=== PATIENT | male | born 1985 ===

== ENCOUNTER 2017-01-16 14:52 | Emergency (ER) | payer BC ==
[2017-01-16 14:52] VITALS: BMI 48.2
--- NOTE | 2017-01-16 15:13 | ED PDOC ---
Arrival/HPI - General Chief Complaint: Chest Pain Time Seen by Provider: 01/16/17 15:04 Historian: Patient - History of Present Illness Narrative History of Present Illness (Text): 01/16/17 15:11 A 31 year old male, whose past medical history includes asthma and depression, presents to the emergency department complaining of intermittent chest pain radiating to the back since last night and again after having woken up this morning. Patient reports that his chest pain has been intermittent since last night ever hour. When he woke up this morning, symptoms continued for every 2 hours. Patient denies fever, chills, nausea, vomiting, diarrhea, abdominal pain , shortness of breath, cough, headache, or any other complaints. Time/Duration: Other (last night and this morning when patient woke up) Symptom Course: Intermittent Activities at Onset: Rest, Light Context: Home Past Medical History - Provider Review Nursing Documentation Reviewed: Yes - Travel History Have you recently traveled outside [place] w/in the past 3 mons?: No - Infectious Disease Hx of Infectious Diseases: None - Tetanus Immunization Tetanus Immunization: Unknown - Pulmonary Hx Asthma: Yes - Psychiatric Hx Depression: No Hx Emotional Abuse: No Hx Physical Abuse: No Hx Substance Use: No - Past Surgical History Past Surgical History: No Previous - Suicidal Assessment Feels Threatened In Home Enviroment: No Family/Social History - Physician Review Nursing Documentation Reviewed: Yes Family/Social History: No Known Family HX Smoking Status: Never Smoked Hx Alcohol Use: No Hx Substance Use: No Hx Substance Use Treatment: No Allergies/Home Meds Allergies/Adverse Reactions: Allergies shellfish Allergy (Uncoded 01/16/17 14:59) ANAPHYLAXIS Review of Systems - Physician Review All systems were reviewed & negative as marked: Yes - Review of Systems Constitutional: absent: Fevers, Night Sweats Respiratory: absent: SOB, Cough Cardiovascular: Chest Pain (radiating to the back) Gastrointestinal: absent: Abdominal Pain, Diarrhea, Nausea, Vomiting Neurological: absent: Headache Physical Exam Vital Signs Reviewed: Yes Vital Signs Temp Pulse Pulse Resp BP Pulse Ox 01/16/17 17:59 98 H 18 137/87 98 01/16/17 16:00 96 H 01/16/17 15:08 97.8 F 103 H 19 162/90 H 103 H Temperature: Afebrile Blood Pressure: Normal Pulse: Tachycardic Respiratory Rate: Normal Appearance: Positive for: Well-Appearing Pain Distress: None Mental Status: Positive for: Alert and Oriented X 3 - Systems Exam Head: Present: Atraumatic, Normocephalic Pupils: Present: PERRL Extroacular Muscles: Present: EOMI Conjunctiva: Present: Normal Mouth: Present: Moist Mucous Membranes Neck: Present: Normal Range of Motion Respiratory/Chest: Present: Clear to Auscultation, Good Air Exchange. No: Respiratory Distress, Accessory Muscle Use, Other (no tenderness in chest) Cardiovascular: Present: Regular Rate and Rhythm, Normal S1, S2. No: Murmurs Abdomen: Present: Normal Bowel Sounds. No: Tenderness, Distention, Peritoneal Signs Back: Present: Normal Inspection Upper Extremity: Present: Normal Inspection. No: Cyanosis, Edema Lower Extremity: Present: Normal Inspection. No: Edema, CALF TENDERNESS (no calf pain), Other Neurological: Present: GCS=15, CN II-XII Intact, Speech Normal Skin: Present: Warm, Dry, Normal Color. No: Rashes Psychiatric: Present: Alert, Oriented x 3, Normal Insight, Normal Concentration Medical Decision Making ED Course and Treatment: 01/16/17 15:08 Impression: 31 year old male with chest pain radiating to the back. Physical exam shows no tenderness in chest, no swelling, no calf pain. Differential Diagnosis included but are not limited to: Chest Pain r/o PE vs Anxiety vs MSK, low risk for ACS Plan: -- EKG -- Blood Gas -- Chest CT -- Chest X-ray -- Labs -- Nasal Cannula -- Reassess and disposition Prior Visits: Notes and results from previous visits were reviewed. Patient was last seen in the emergency department on 10/26/2013 complaints of asthma exacerbation. Patient was discharged home. Progress Notes: 01/16/2017 15:20 EKG: Ordered, reviewed, and independently interpreted the EKG. Rate : 104 BPM Rhythm : Sinus tachycardia Interpretation : No ST-segment elevations or depressions, no T-wave inversions, normal intervals. Comparison : No previous EKG for comparison. 01/16/2017 17:44:11 Chest X-Ray Dictator : Monica Purdy MD HISTORY: chest pain COMPARISON: Chest x-ray performed 05/31/12 IMPRESSION: No focal consolidation, significant pleural effusion, or definite pneumothorax identified. 01/16/17 18:47 Patient currently feels better and is asymptomatic. 01/16/17 19:11 Patient's sister is at bedside who says that he gets anxious and has had similar symptoms like this before due to anxiety. Patient then admits to this. CT Angio Chest reviewed. Results below. Will discharge patient home with close follow up with PMD. He goes to [facility]. Advised to return to the ED if symptoms worsen or any other convern. Accession No. : [id number] Patient Name / ID : VINCENT DUPREE / [id number] Exam Date : 01/16/2017 17:21:21 ( Addendum_Approved ) Study Comment : Sex / Age : M / 31Y CTA chest PE protocol Indication: Chest pain, rule out PE Impression: There is suboptimal opacification of the pulmonary arteries due to missed bolus of the intravenous contrast limiting evaluation for pulmonary embolus. Given this limitation, there are no visible intraluminal filling defects within the central pulmonary arteries to suggest central pulmonary embolism. Hepatic steatosis. Additional findings as above. - Lab Interpretations Lab Results: 01/16/17 16:04 01/16/17 16:04 Lab Results 01/16/17 16:04: Sodium 138, Chloride 101, Potassium 4.1, Carbon Dioxide 26, Anion Gap 15, BUN 12, Creatinine 0.7, Est GFR ( Amer) > 60, Est GFR (Non- Af Amer) > 60, Random Glucose 154 H, Calcium 9.3, Lactate Dehydrogenase 483, Total Creatine Kinase 105, Troponin I < 0.01, NT-Pro-B Natriuret Pep 29.1 01/16/17 16:04: pO2 65 H, VBG pH 7.36, VBG pCO2 49.0, VBG HCO3 27.7, VBG Total CO2 29.2 H, VBG O2 Sat (Calc) 95.6 H, VBG Base Excess 1.5, VBG Potassium 4.5, Sodium 136.0, Chloride 103.0, Glucose 152 H, Lactate 2.0, FiO2 21.0, Venous Blood Potassium 4.5 01/16/17 16:04: PT 10.5, INR 0.97, APTT 29.6, D-Dimer, Quantitative 0.33 01/16/17 16:04: WBC 4.9, RBC 5.38, Hgb 15.0, Hct 44.2, MCV 82.2, MCH 27.9, MCHC 33.9, RDW 13.8, Plt Count 200, MPV 11.9 H, Gran % 62.3, Lymph % (Auto) 30.4, [place] % (Auto) 6.5 H, Eos % (Auto) 0.6 L, Baso % (Auto) 0.2, Gran # 3.08, Lymph # 1.5, Williamson # 0.3, Eos # 0.0, Baso # 0.01 I have reviewed the lab results: Yes - RAD Interpretation Radiology Orders: 01/16/17 15:08 ANGIO CHEST PE PROTOCOL [CT] Stat 01/16/17 15:10 CHEST PORTABLE [RAD] Stat - Medication Orders Current Medication Orders: Discontinued Medications Iodixanol (Visipaque 320 Mg/Ml 100 Ml) Confirm Administered Dose 100 ml IV .STK- MED ONE Stop: 01/16/17 17:19 - Scribe Statement Wendi Weiner Provider Scribe Attestation: All medical record entries made by the Scribe were at my direction and personally dictated by me. I have reviewed the chart and agree that the record accurately reflects my personal performance of the history, physical exam, medical decision making, and the department course for this patient. I have also personally directed, reviewed, and agree with the discharge instructions and disposition. Disposition/Present on Arrival - Present on Arrival Any Indicators Present on Arrival: No History of DVT/PE: No History of Uncontrolled Diabetes: No Urinary Catheter: No History of Decub. Ulcer: No History Surgical Site Infection Following: None - Disposition Have Diagnosis and Disposition been Completed?: Yes Diagnosis: Chest pain Disposition: HOME/ ROUTINE Disposition Time: 19:13 Patient Plan: Discharge Patient Problems: Current Active Problems Problem Status Onset Chest pain Acute Condition: IMPROVED Discharge Instructions (ExitCare): Chest Pain (ED) Additional Instructions: Mr Vidal, thank you for letting us take care of you today. Your provider was Dr. Goodwin. You were treated for Chest Pain. The emergency medical care you received today was directed at your acute symptoms. If you were prescribed any medication, please fill it and take as directed. It may take several days for your symptoms to resolve. Return to the Emergency Department if your symptoms worsen, do not improve, or if you have any other problems. Please contact your doctor or call one of the physicians/clinics you have been referred to that are listed on the Patient Visit Information form that is included in your discharge packet. Bring any paperwork you were given at discharge with you along with any medications you are taking to your follow up visit. Our treatment cannot replace ongoing medical care by a primary care provider (PCP) outside of the emergency department. Thank you for allowing the [facility] team to be part of your care today. If you had an X-Ray or CT scan: A Radiologist will review the ED reading if any change in treatment is needed we will contact you. If you had a blood, urine, or wound culture: It will take several days for the results, if any change in treatment is needed we will contact you. If you had an STI test: It will take 48 hours for the results. Please call after 1 week if you have not heard back. Referrals: [facility], [Non-Staff] - Follow up with primary PCP,NO [Primary Care Provider] - Follow up with primary Forms: [employer] ([place])
[2017-01-16 15:17] VITALS: TEMP 97.8
[2017-01-16 16:19] LABS: BASO # 0.01 K/mm3 (0.0-2.0); BASO % 0.2 % (0.0-3.0); EOS % 0.6 % (1.5-5.0); GRAN # 3.08 (1.4-6.5); GRAN % 62.3 % (50.0-68.0); LYMPH # 1.5 (1.2-3.4); LYMPH % 30.4 % (22.0-35.0); MEAN CELL VOLUME 82.2 fL (80.0-105.0); MEAN CORPUSCULAR HEMOGLOBIN 27.9 pg (25.0-35.0); MEAN CORPUSCULAR HGB CONC 33.9 g/dl (31.0-37.0); MEAN PLATELET VOLUME 11.9 fl (7.0-11.0); MONO # 0.3 (0.1-0.6); MONO % 6.5 % (1.0-6.0); PLATELET COUNT 200 10^3/uL (120.0-450.0); RBC 5.38 10^6/uL (3.5-6.1); RED CELL DISTRIBUTION WIDTH 13.8 % (11.5-14.5); VENOUS BLOOD GAS BASE EXCESS 1.5 mmol/L (0.0-2.0); VENOUS BLOOD GAS PO2 65 mm/Hg (30-55); VENOUS BLOOD PH 7.36 (7.32-7.43); WHITE BLOOD COUNT 4.9 10^3/ul (4.5-11.0)
[2017-01-16 16:30] LABS: INR 0.97 (0.93-1.08); PARTIAL THROMBOPLASTIN TIME 29.6 Seconds (23.7-30.8); PROTHROMBIN TIME 10.5 Seconds (9.9-11.8)
[2017-01-16 16:31] LABS: D DIMER 0.33 mg/L FEU (0-0.50)
[2017-01-16 16:40] LABS: B-TYPE NATRIURETIC PEPTIDE 29.1 pg/mL (0-450)
[2017-01-16 16:46] LABS: TROPONIN I < 0.01 ng/mL
[2017-01-16 16:49] LABS: BLOOD UREA NITROGEN 12 mg/dL (7-21); CALCIUM 9.3 mg/dL (8.4-10.5); GFR AFRICAN-AMERICAN > 60; GFR NON-AFRICAN AMERICAN > 60
[2017-01-16] MEDS ORDERED: Iodixanol 320 MG/ML 100 ML BOTTLE IV ONE (17:18)
--- NOTE | 2017-01-16 17:46 | RAD ---
HISTORY: chest pain COMPARISON: Chest x-ray performed 05/31/12 TECHNIQUE: Chest, one view. FINDINGS: Examination limited by habitus. LUNGS: No focal consolidation. Please note that chest x-ray has limited sensitivity for the detection of pulmonary masses. PLEURA: No significant pleural effusion identified. No definite pneumothorax . CARDIOVASCULAR: The cardiomediastinal silhouette appears within normal limits of size. OSSEOUS STRUCTURES: No acute osseous abnormality identified. VISUALIZED UPPER ABDOMEN: Unremarkable. OTHER FINDINGS: None. IMPRESSION: No focal consolidation, significant pleural effusion, or definite pneumothorax identified.
[2017-01-16 18:01] VITALS: BP 137/87; PULSE 98
--- NOTE | 2017-01-16 19:00 | CT ---
CTA chest PE protocol Indication: Chest pain, rule out PE Technique: Contiguous axial images were obtained through the chest with intravenous contrast enhancement. Sagittal and coronal reconstructions were generated and reviewed. This CT exam was performed using 1 or more of the falling dose reduction techniques: Automated exposure control, adjustment of the MAA and/or kV according to patient size, and/or use of iterative reconstruction technique. IV Contrast: Radiation dose (DLP): 824.44 MGy-cm. Comparison: Chest x-ray performed 01/16/17 Findings: Visualized portions of the inferior thyroid gland appear unremarkable. Evidence an aberrant subclavian artery, anatomic variant. The heart appears within normal limits of size. There is suboptimal opacification of the pulmonary arteries due to missed bolus of the intravenous contrast limiting evaluation for pulmonary embolus. Given this limitation, there are no visible intraluminal filling defects within the central pulmonary arteries to suggest central pulmonary embolism. Anterior mediastinal soft tissue presumed to reflect residual thymic tissue. No focal consolidation. No pleural effusion. No pneumothorax. No suspicious pulmonary nodules measuring greater than 5 mm. Limited visualized portions of the upper abdomen demonstrates hepatic steatosis. No acute osseous abnormality is detected. Impression: There is suboptimal opacification of the pulmonary arteries due to missed bolus of the intravenous contrast limiting evaluation for pulmonary embolus. Given this limitation, there are no visible intraluminal filling defects within the central pulmonary arteries to suggest central pulmonary embolism. Hepatic steatosis. Additional findings as above.
[2017-01-16 19:31] VITALS: RESP 16; O2SAT 99
--- NOTE | 2017-01-16 20:19 | CARD ---
APPROVED REPORT EKG Measurement Heart [id number] <Conclusion> Sinus tachycardia Nonspecific ST abnormality Abnormal ECG
== END 2017-01-16 19:31 | disposition home or self-care (01) ==
LOC: ED 14:52
DX: R07.9 Chest pain, unspecified (principal)
CPT/HCPCS: 71010; 71275; 80048; 82550; 82803; 83615; 83880; 84484; 85025; 85378; 85610; 85730; 93005; 99283; Q9967

== ENCOUNTER 2017-12-23 07:47 | Emergency (ER) | payer BC, MEDICAID ==
[2017-12-23 07:51] VITALS: BMI 53.2
[2017-12-23] MEDS ORDERED: Albuterol-Ipratrop 3 mg / 0.5 (3 ml) UD ONE (07:51)
[2017-12-23] MEDS ORDERED: Magnesium Sulfate 2 gm/50 ml 2 GM/50 ML BAG IVPB ONE (08:01)
[2017-12-23] MEDS ORDERED: Albuterol-Ipratrop 3 mg / 0.5 (3 ml) UD IH STA (08:01)
[2017-12-23 09:33] LABS: ALB/GLOB RATIO 1.2 (1.1-1.8); ALBUMIN 4.1 g/dL (3.0-4.8); ALT/SGPT 86 U/L (7-56); AST/SGOT 34 U/L (17-59); BLOOD UREA NITROGEN 8 mg/dL (7-21); CALCIUM 8.8 mg/dL (8.4-10.5); GFR AFRICAN-AMERICAN > 60; GFR NON-AFRICAN AMERICAN > 60
[2017-12-23 09:58] LABS: BASO # 0.03 K/mm3 (0.0-2.0); BASO % 0.6 % (0.0-3.0); EOS # 0.3 (0.0-0.7); EOS % 4.9 % (1.5-5.0); GRAN # 2.56 (1.4-6.5); HEMOGLOBIN 14.1 g/dL (14.0-18.0); LYMPH # 1.9 (1.2-3.4); LYMPH % 37.7 % (22.0-35.0); MEAN CELL VOLUME 81.9 fl (80.0-105.0); MEAN CORPUSCULAR HGB CONC 34.2 g/dl (31.0-37.0); MEAN PLATELET VOLUME 12.4 fl (7.0-11.0); MONO # 0.4 (0.1-0.6); MONO % 6.8 % (1.0-6.0); RBC 5.03 10^6/uL (3.5-6.1); RED CELL DISTRIBUTION WIDTH 14.2 % (11.5-14.5); WHITE BLOOD COUNT 5.1 10^3/ul (4.5-11.0)
--- NOTE | 2017-12-23 10:18 | ED PDOC ---
Arrival/HPI - General Chief Complaint: Shortness Of Breath Time Seen by Provider: 12/23/17 08:01 Historian: Patient - History of Present Illness Narrative History of Present Illness (Text): 12/23/17 10:14 A 32 year old male, whose past medical history includes asthma, presents to the emergency department complaining of shortness of breath since last night. Patient notes an associated dry cough. He reports his symptoms are similar to prior asthma exacerbations. Patient used nebulizer treatments at home, with mild relief. He notes his symptoms worsened this morning causing him to come in for further evaluation. Patient denies any fever, chills, nausea, vomiting, abdominal pain, chest pain or any other complaints. Patient reports he is only on rescue medication. He states he has never been intubated on prior hospitalizations. PMD: Dr. Palencia Time/Duration: Other (last night) Symptom Course: Unchanged Quality: Other Context: Home Past Medical History - Provider Review Nursing Documentation Reviewed: Yes - Infectious Disease Hx of Infectious Diseases: None - Tetanus Immunization Tetanus Immunization: Unknown - Pulmonary Hx Asthma: Yes - Psychiatric Hx Depression: No Hx Emotional Abuse: No Hx Physical Abuse: No Hx Substance Use: No - Past Surgical History Past Surgical History: No Previous - Suicidal Assessment Feels Threatened In Home Enviroment: No Family/Social History - Physician Review Nursing Documentation Reviewed: Yes Family/Social History: No Known Family HX Smoking Status: Never Smoked Hx Alcohol Use: No Hx Substance Use: No Hx Substance Use Treatment: No Allergies/Home Meds Allergies/Adverse Reactions: Allergies shellfish Allergy (Uncoded 01/16/17 14:59) ANAPHYLAXIS Review of Systems - Physician Review All systems were reviewed & negative as marked: Yes - Review of Systems Constitutional: absent: Fevers, Night Sweats Respiratory: SOB, Cough. absent: Sputum Cardiovascular: absent: Chest Pain Gastrointestinal: absent: Abdominal Pain, Nausea, Vomiting Physical Exam Vital Signs Temp Pulse Resp BP Pulse Ox 12/23/17 10:34 98 F 100 H 18 132/78 98 12/23/17 08:30 98.6 F 110 H 22 122/88 95 12/23/17 07:50 22 95 Appearance: Positive for: Well-Appearing, Non-Toxic, Comfortable, Other ( Morbidly obese male) Pain Distress: None Mental Status: Positive for: Alert and Oriented X 3 - Systems Exam Head: Present: Atraumatic, Normocephalic Pupils: Present: PERRL Extroacular Muscles: Present: EOMI Conjunctiva: Present: Normal Mouth: Present: Moist Mucous Membranes Neck: Present: Normal Range of Motion Respiratory/Chest: Present: Good Air Exchange, Wheezes (fine expiratory wheezing ). No: Respiratory Distress, Accessory Muscle Use Cardiovascular: Present: Regular Rate and Rhythm, Normal S1, S2. No: Murmurs Abdomen: Present: Normal Bowel Sounds. No: Tenderness, Distention, Peritoneal Signs Back: Present: Normal Inspection Upper Extremity: Present: Normal Inspection. No: Cyanosis, Edema Lower Extremity: Present: Normal Inspection. No: Edema Neurological: Present: GCS=15, CN II-XII Intact, Speech Normal Skin: Present: Warm, Dry, Normal Color. No: Rashes Psychiatric: Present: Alert, Oriented x 3, Normal Insight, Normal Concentration Medical Decision Making ED Course and Treatment: 12/23/17 10:14 Impression: A 32 year old male with shortness of breath and dry cough Differential Diagnosis included but are not limited to: Asthma exacerbation Plan: -- Chest xray -- Labs -- Duoneb, Solumedrol and Magnesium sulfate -- Reassess and disposition Progress Notes: EKG shows NSR at 98 BPM with normal axis, normal intervals. Interpreted by me. 12/23/17 08:14 Chest X-ray read and interpreted by me, which shows no active disease. On re-evaluation at 10:08, patient feels better and is in no acute distress. I have discussed the results and plan with the patient, who expresses understanding. Patient in agreement with plan to be discharged home. Patient is stable for discharge. Patient was instructed to follow up with physician or return if symptoms worsen or new concerning symptoms arise. - Lab Interpretations Lab Results: 12/23/17 09:10 12/23/17 09:10 Lab Results 12/23/17 09:10: Sodium 143, Potassium 3.8, Chloride 107, Carbon Dioxide 24, Anion Gap 16, BUN 8, Creatinine 0.6 L, Est GFR ( Amer) > 60, Est GFR (Non -Af Amer) > 60, Random Glucose 112 H, Calcium 8.8, Magnesium 1.8, Total Bilirubin 0.3, AST 34, ALT 86 H, Alkaline Phosphatase 61, Total Protein 7.3, Albumin 4.1, Globulin 3.3, Albumin/Globulin Ratio 1.2 12/23/17 09:10: WBC 5.1, RBC 5.03, Hgb 14.1, Hct 41.2 L, MCV 81.9, MCH 28.0, MCHC 34.2, RDW 14.2, Plt Count 211, MPV 12.4 H, Gran % 50.0, Lymph % (Auto) 37.7 H, [place] % (Auto) 6.8 H, Eos % (Auto) 4.9, Baso % (Auto) 0.6, Gran # 2.56, Lymph # (Auto) 1.9, [place] # (Auto) 0.4, Eos # (Auto) 0.3, Baso # (Auto) 0.03 I have reviewed the lab results: Yes - RAD Interpretation Radiology Orders: 12/23/17 08:02 CHEST PORTABLE [RAD] Stat - Medication Orders Current Medication Orders: Discontinued Medications Albuterol/Ipratropium (Duoneb 3 Mg/0.5 Mg (3 Ml) Ud) 3 ml IH STAT STA Stop: 12/23/17 08:02 Last Admin: 12/23/17 08:00 Dose: 3 ml Magnesium Sulfate (Magnesium Sulfate 2 Gm/50 Ml Water) 2 gm in 50 mls @ 100 mls /hr IVPB ONCE ONE Stop: 12/23/17 08:30 Last Admin: 12/23/17 08:30 Dose: 100 mls/hr eMAR Start Stop Document 12/23/17 08:30 [facility] (Rec[facility] 12/23/17 08[facility]45 [id number] Intravenous Solution Start Date 12/23/17 Start Time 08:30 End Date 12/23/17 End time 09:00 Total Infusion Time 30 Methylprednisolone (Solu-Medrol) 125 mg IVP STAT STA Stop: 12/23/17 08:02 Last Admin: 12/23/17 08:30 Dose: 125 mg IVP Administration Document 12/23/17 08:30 [facility] (Rec: 12/23/17 08:45 [id number]) Charges for Administration # of IVP Administrations 1 - Scribe Statement The provider has reviewed the documentation as recorded by the Scribe Claudia Chen Provider Scribe Attestation: All medical record entries made by the Scribe were at my direction and personally dictated by me. I have reviewed the chart and agree that the record accurately reflects my personal performance of the history, physical exam, medical decision making, and the department course for this patient. I have also personally directed, reviewed, and agree with the discharge instructions and disposition. Disposition/Present on Arrival - Present on Arrival Any Indicators Present on Arrival: No History of DVT/PE: No History of Uncontrolled Diabetes: No Urinary Catheter: No History of Decub. Ulcer: No History Surgical Site Infection Following: None - Disposition Have Diagnosis and Disposition been Completed?: Yes Diagnosis: Asthma exacerbation Disposition: HOME/ ROUTINE Disposition Time: 10:00 Condition: IMPROVED Discharge Instructions (ExitCare): Asthma, Adult (DC) Additional Instructions: LEIA KAUR, thank you for letting us take care of you today. Your provider was Raymundo Kelly DO and you were treated for ASTHMA ATTACK. The emergency medical care you received today was directed at your acute symptoms. If you were prescribed any medication, please fill it and take as directed. It may take several days for your symptoms to resolve. Return to the Emergency Department if your symptoms worsen, do not improve, or if you have any other problems. Please contact your doctor or call one of the physicians/clinics you have been referred to that are listed on the Patient Visit Information form that is included in your discharge packet. Bring any paperwork you were given at discharge with you along with any medications you are taking to your follow up visit. Our treatment cannot replace ongoing medical care by a primary care provider outside of the emergency department. Thank you for allowing the [facility] team to be part of your care today. Follow up with your primary care doctor in 2-3 days for re-evaluation and further management. Prescriptions: Fluticasone Propionate [Flovent Hfa] 2 puff IH BID #1 aer.w.adap predniSONE [Prednisone] 40 mg PO DAILY #10 tab Referrals: [facility] [facility] Marycarmen Reindu, [Non-Staff] - Follow up with primary Forms: [employer] ([place] Citizen)
[2017-12-23 10:47] VITALS: BP 132/78; PULSE 100; RESP 18; TEMP 98; O2SAT 98
--- NOTE | 2017-12-23 11:19 | RAD ---
HISTORY: r/o infiltrate COMPARISON: Comparison chest 01/16/2018 FINDINGS: LUNGS: No active pulmonary disease. PLEURA: No significant pleural effusion identified, no pneumothorax apparent. CARDIOVASCULAR: Normal. OSSEOUS STRUCTURES: No significant abnormalities. VISUALIZED UPPER ABDOMEN: Normal. OTHER FINDINGS: None. IMPRESSION: No active disease.
--- NOTE | 2017-12-24 09:31 | CARD ---
APPROVED REPORT EKG Measurement Heart [id number] <Conclusion> Normal sinus rhythm PRWP NSSTW changes No change
== END 2017-12-23 10:47 | disposition home or self-care (01) ==
LOC: ED 07:47
DX: J45.901 Unspecified asthma with (acute) exacerbation (principal)
CPT/HCPCS: 71045; 80053; 83735; 85025; 93005; 96365; 96375; 99283; J2930